=== PATIENT | female | born 1995 | race Caucasian/White ===

== ENCOUNTER 2023-06-14 23:21 | Emergency (ER) | payer SELFPAY ==
[~2023-06-14] VITALS: Ht 165.1 cm; Wt 120.2 kg
[2023-06-15] MEDS ORDERED: BACTRIM DS TAB1 EACH PO (01:10)
[2023-06-15] MEDS ORDERED: CEPHALEXIN500 MG PO (01:10)
[2023-06-15 01:20] VITALS: BP 136/76; PULSE 70; RESP 17; TEMP 98.5; O2SAT 100
== END 2023-06-15 01:16 | disposition home or self-care (01) ==
LOC: ER 23:30
DX: L02.416 Cutaneous abscess of left lower limb (principal); L02.415 Cutaneous abscess of right lower limb
CPT/HCPCS: 99283

== ENCOUNTER 2023-06-28 23:15 | Emergency (ER) | payer SELFPAY ==
[~2023-06-28] VITALS: Ht 165.1 cm; Wt 120.2 kg
[~2023-06-28 23:15] MED LIST: BACTRIM DS TAB1 EACH PO; CEPHALEXIN500 MG PO
[2023-06-28 23:20] VITALS: O2SAT 100
[2023-06-28] MEDS ORDERED: MEDROL4 M2 PO (23:46)
== END 2023-06-28 23:45 | disposition home or self-care (01) ==
LOC: ER 23:20
DX: R21 Rash and other nonspecific skin eruption (principal)
CPT/HCPCS: 99283

== ENCOUNTER 2023-08-11 16:30 | Emergency (ER) | payer SELFPAY ==
[~2023-08-11] VITALS: Ht 165.1 cm; Wt 120.2 kg
[~2023-08-11 16:30] MED LIST changes: +MEDROL4 M2 PO
[2023-08-11] MEDS ORDERED: SODIUM CHLORIDE FLUSH 10 ML SYR IV PRN (17:00)
[2023-08-11 17:13] LABS: CLARITY,URINE HAZY (CLEAR); COLOR,URINE YELLOW (YELLOW); GLUCOSE, URINE NEGATIVE (NEGATIVE); KETONES,URINE TRACE (NEGATIVE); LEUKOCYTE ESTERASE ,URINE SMALL (NEGATIVE); NITRITE,URINE POSITIVE (NEGATIVE); PH,URINE 6 (5 - 7); PROTEIN,URINE DIPSTICK NEGATIVE (NEGATIVE); URINE UROBILINOGEN 0.2 mg/dL (0.2 - 1)
[2023-08-11 17:14] LABS: BILIRUBIN,URINE NEGATIVE (NEGATIVE)
[2023-08-11 17:21] LABS: BASOPHILS % 0.2 % (0.0-1.0); EOSINOPHILS # (AUTO) 0.3 (0.0-0.4); EOSINOPHILS % 2.3 % (0.0-6.0); HEMATOCRIT 37.1 % (34.2-44.1); HEMOGLOBIN 11.1 g/dL (12.0-16.0); LYMPHOCYTES # (AUTO) 2.2 (1.0-3.2); LYMPHOCYTES % 17.9 % (18.0-39.1); MEAN CORPUSCULAR HEMOGLOBIN 26.2 pg (28-32); MEAN CORPUSCULAR HGB CONC 29.9 g/dL (31-35); MEAN CORPUSCULAR VOLUME 87.7 fL (81-99); MONOCYTES # (AUTO) 0.5 (0.2-0.8); MONOCYTES % 4.2 % (4.4-11.3); NEUTROPHILS % 75.2 % (38.7-80.0); PLATELET COUNT 399 x10e3/uL (140-360); RED BLOOD COUNT 4.23 x10e6/uL (3.6-5.1); RED CELL DISTRIBUTION WIDTH 13.8 % (11.7-14.4); WHITE BLOOD COUNT 12.03 x10e3/uL (4.8-10.8)
[2023-08-11 17:32] LABS: BACTERIA,URINE MANY /HPF; EPITHELIAL CELLS,URINE MANY /LPF; RBC,URINE 21-50 /HPF (0-5); WBC,URINE (MAN) >50 /HPF (0-5)
[2023-08-11 17:39] LABS: ALBUMIN 3.5 g/dL (3.5-5.0); ALBUMIN/GLOBULIN RATIO 0.9 (0.8-2.0); ANION GAP 11.5 mmol/L (8-16); BILIRUBIN,TOTAL 0.2 mg/dL (0.2-1.2); CALCIUM 8.3 mg/dL (8.4-10.2); CREATININE, SERUM 0.65 mg/dL (0.57-1.11); MAGNESIUM 1.9 MG/DL (1.3-2.1); POTASSIUM 3.5 mmol/L (3.5-5.1); TOTAL PROTEIN 7.2 g/dL (6.5-8.1)
[2023-08-11] MEDS: SODIUM CHLORIDE 0.9% 1000ML 1,000 ML IV STA (18:45)
[2023-08-11] MEDS ORDERED: CEFDINIR300 MG PO (19:21)
[2023-08-11 19:34] VITALS: BP 144/86; PULSE 71; RESP 16; TEMP 98.4; O2SAT 100
== END 2023-08-11 19:26 | disposition home or self-care (01) ==
LOC: ER 16:57
DX: O23.41 Unspecified infection of urinary tract in pregnancy, first trimester (principal); O99.331 Smoking (tobacco) complicating pregnancy, first trimester; K21.9 Gastro-esophageal reflux disease without esophagitis; Z86.73 Personal history of transient ischemic attack (TIA), and cerebral infarction without residual deficits
CPT/HCPCS: 36415; 76817; 80053; 81001; 83735; 84702; 85025; 99283; J0696; J7030